=== PATIENT | male | born 1965 | race Caucasian/White ===

== ENCOUNTER 2016-08-03 18:48 | Emergency (ER) | payer MEDICAID, OTHER ==
[~2016-08-03] VITALS: Ht 185.4 cm; Wt 84.5 kg
[2016-08-03 19:01] VITALS: Ht 185.4 cm; Wt 84.5 kg
[2016-08-03] MEDS ORDERED: HYDROCODONE/APAP (5/325) TAB PO ONE (20:00)
[2016-08-03] MEDS ORDERED: DIPHTH/TET/ACEL PERTUSS (ADULT) 0.5 ML VIAL IM* ONE (20:00)
[2016-08-03] MEDS ORDERED: IBUP-1542 PO (20:28)
[2016-08-03] MEDS ORDERED: CEPH-443 PO (20:28)
[2016-08-03] MEDS ORDERED: HYDR-906 PO (20:28)
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
[2016-08-03] MEDS ORDERED: SILVER SULFADIAZINE 1% 25 GM CR TOP ONE (20:30)
== END 2016-08-03 20:40 | disposition home or self-care (01) ==
LOC: FTE 18:48
DX: T23.261A Burn of second degree of back of right hand, initial encounter (principal); X10.2XXA Contact with fats and cooking oils, initial encounter; Y92.9 Unspecified place or not applicable; Z23 Encounter for immunization
CPT/HCPCS: 16025; 90471; 90715; Z7502; Z7610